=== PATIENT | male | born 1980 | race Caucasian/White ===

== ENCOUNTER 2016-03-04 19:43 | Emergency (ER) | payer SELFPAY ==
[2016-03-04 20:01] VITALS: TEMP 97.8; BMI 23.6
[2016-03-04] MEDS ORDERED: ONDANSETRON HCL 4 MG/2 ML VIAL IV ONE (20:28)
[2016-03-04] MEDS ORDERED: NS 1,000 ML IV ONE (20:28)
[2016-03-04] MEDS ORDERED: HYDROmorphone 1 MG INJECTION IV ONE ×2 (20:28→22:17)
[2016-03-04] MEDS ORDERED: AZITHROMYCIN 250 MG TAB PO ONE (20:57)
[2016-03-04] MEDS ORDERED: CEFTRIAXONE 1 GM in D5W 100 ML IV ONE (20:57)
--- NOTE | 2016-03-04 20:57 | EDPRACDOC ---
- General Information Chief Complaint: Male Urogenital Problems Stated Complaint: GROIN PAIN; SWELLING Time Seen by Provider: 03/04/16 20:28 Information Source: Patient Mode Of Arrival: Car Home Medications: Home Medications Albuterol Sulfate [Proair Hfa] 2 puff INH Q4 PRN #1 inhaler 10/30/15 Azithromycin [Zithromax] 250 mg PO DAILY #6 tablet 10/30/15 Prednisone [Deltasone, Orasone] 20 mg PO DAILY #12 tab 10/30/15 Ketorolac Tromethamine [Toradol] 10 mg PO Q6H PRN #20 tab 02/12/16 Phenazopyridine HCl [Pyridium] 200 mg PO TID #30 tablet 02/12/16 Sulfamethoxazole/Trimethoprim [Bactrim Ds Tablet] 1 tab PO BID #14 tab 02/12/16 Ciprofloxacin HCl [Cipro] 500 mg PO BID #20 tab 03/04/16 Doxycycline [Vibramycin] 100 mg PO BID #42 tab 03/04/16 Ondansetron [Zofran Odt] 4 mg PO Q6H PRN #20 tab.rapdis 03/04/16 Oxycodone Immediate Release [Oxycodone Immediate Release (OxyIR)] 5 mg PO Q6H PRN #30 tab 03/04/16 Allergies/Adverse Reactions: Allergies Allergy/AdvReac Type Severity Reaction Status Date / Time Penicillins Allergy Severe Hives* Verified 02/12/16 20:51 - History of Present Illness HPI: PT PRESENTS WITH LEFT TESTICULE PAIN AND SWELLING. STATES THIS HAS WORSENED TODAY. PT WAS SEEN AT THIS FACILITY LAST WEEK AND DX WITH UTI, THEN AT [facility] AND DIAGNOSED WITH EPIDIDYMITIS. STATES HE IS TAKING THE MEDICATIONS GIVEN TO HIM. PT STATES HE IS GETTING WORSE. 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 Urinary Pain Location: Reports: None Symptom Onset: Reports: Gradual Pain Severity: Moderate Pain Quality: Reports: Aching, Sharp, Stabbing History of: Reports: UTI Oral Intake: Decreased Urinary Output: Normal Associated Signs and Symptoms: Reports: None ED Past Medical History - History Reviewed Yes Nurses notes reviewed and agree except as marked - Patient Medical History Respiratory History: Reports: Asthma ( A CHILD) Psychological History: Denies: Depression - Family Medical History Reports: Cancer (colon in aunts) - Social Medical History Smoking Status: Heavy tobacco smoker (5 or more cigarettes/day or daily pipe/ cigar) EDM Review of Systems - Review of Systems ROS Negative Except as Marked: Yes All systems reviewed and were negative except as marked - Physical Exam Constitutional: Alert Oriented to: Time, Person, Place Last recorded Vital Signs: Last Vital Signs Temp 97.8 F 03/04/16 19:57 Pulse 99 03/04/16 19:57 Resp 20 03/04/16 19:57 BP 142/79 03/04/16 19:57 Pulse Ox 94 03/04/16 19:57 Oxygen Pulse Oxygen Saturation 94 O2 Device Room Air Oxygen Flow Rate Fraction of Inspired Oxygen ( FIO2) - HEENT Head: Normal ( normocephalic) Eye Exam: Normal (PERRL, EOMI, Sclera white) Oropharynx: Normal (Pharynx:Moist without exudate,Gums-no swelling) Tympanic Membrane: Normal Nose: No Symptoms Reported (septum midline) Neck: Normal (FROM, trachea at midline) - Respiratory/Cardiovascular Respiratory: Normal - CTA (BBS clear to auscultation without adventitious sounds ) Cardiovascular: Normal (RRR without murmur, gallop or rub) - GI Auscultation: Normal (NABS) Palpation: Normal (Soft,No rebound or guarding, non distended) Tenderness: Non tender Whitney's Sign: Negative Rectal Exam: Deferred - Male Genitalia: Bilateral: Normal Scrotum: Right: Normal, Left: Erythema, Tender, Swelling Hernia: Bilateral: Normal - Musculoskeletal Back: Normal (Non-Tender) Extremities: Normal (Normal tone, Pulses 2+ No cyanosis or edema, FROM) - Integumentary Skin: Normal, Warm, Dry Lymphatics: Normal (no adenopathy) - Neurologic Memory Impaired: Normal Motor Function: Normal (Normal tone, Pulses 2+ No cyanosis or edema, FROM) Cranial Nerve: Normal (CN II-X11 intact sensation, strength 5/5) Cerebellar: Normal Mood Description: Normal Perception: Normal - Differential Diagnosis Other - Results 03/04/16 21:05 03/04/16 21:05 Decision Time to Discharge: 22:05 - Departure Disposition: Home Condition: Stable Final Diagnosis: Acute epididymitis Instructions: Epididymitis (ED) Education/Counseling Given To: Patient Education/Counseling Given Regarding: Diagnosis, Treatment, Prognosis, Follow Up Referrals: Kurt Ghotra II, MD [Staff Physician] - One Week Zack Hatfield MD [Staff Physician] - One Week Prescriptions: Ciprofloxacin HCl [Cipro] 500 mg PO BID #20 tab Doxycycline [Vibramycin] 100 mg PO BID #42 tab Ondansetron [Zofran Odt] 4 mg PO Q6H PRN #20 tab.rapdis PRN Reason: Nausea/Vomiting Oxycodone Immediate Release [Oxycodone Immediate Release (OxyIR)] 5 mg PO Q6H PRN #30 tab PRN Reason: Pain Additional Instructions: INCREASE FLUID INTAKE. FOLLOW UP WITH PRIMARY CARE PROVIDER NEXT WEEK. TAKE ALL ANTIBIOTICS PRESCRIBED. RETURN TO THE ED FOR WORSENING SYMPTOMS OR CONCERNS. PLEASE MAKE A FOLLOW UP WITH UROLOGIST FOR NEXT WEEK.
[2016-03-04 21:26] LABS: AUTOMATED BASOPHIL 0.8 % (0-2); AUTOMATED EOSINOPHIL 3.2 % (0-5); AUTOMATED MONOCYTE 9.6 % (3-10); AUTOMATED NEUTROPHIL 60.4 % (45-76); MPV 7.9 fL (7.4-10.4)
[2016-03-04 21:29] LABS: LEUKOCYTES/URINE NEG (NEGATIVE); URINE OCCULT BLOOD 1+ (NEG/TRACE); WBC/URINE 20-30 (0-2)
[2016-03-04 21:30] LABS: BLOOD UREA NITROGEN 11 MG/DL (9-20); CALCIUM 9.4 MG/DL (8.4-10.2); CALCULATED OSMOLALITY 269 MOs/Kg (270-290); CHLORIDE 102 mEq/L (98-107); GLUCOSE 88 MG/DL (70-99); SODIUM LEVEL 141 mEq/L (137-146); TOTAL PROTEIN 7.4 G/DL (6.3-8.2)
[2016-03-04 21:34] LABS: NITRITE/URINE POS (NEGATIVE)
--- NOTE | 2016-03-04 21:56 | DIRPT ---
CLINICAL DATA: Left testicular pain and swelling for 3 days EXAM: SCROTAL ULTRASOUND DOPPLER ULTRASOUND OF THE TESTICLES TECHNIQUE: Complete ultrasound examination of the testicles, epididymis, and other scrotal structures was performed. Color and spectral Doppler ultrasound were also utilized to evaluate blood flow to the testicles. COMPARISON: None. FINDINGS: Right testicle Measurements: 47 x 25 x 35 mm. No mass or microlithiasis visualized. Left testicle Measurements: 48 x 30 x 27 mm. No mass or microlithiasis visualized. Right epididymis: Normal in size and appearance. Left epididymis: Body and tail of the left epididymis are enlarged, showing heterogeneous echogenicity and hyperemia. Hydrocele: Moderate left hydrocele. Trace right hydrocele. Varicocele: None visualized. Pulsed Doppler interrogation of both testes demonstrates normal low resistance arterial and venous waveforms bilaterally. IMPRESSION: Findings most consistent with left epididymitis and associated left hydrocele. Electronically Signed By: John Hinds M.D. On: 03/04/2016 21:54
[2016-03-04 23:12] VITALS: BP 142/63; PULSE 90
== END 2016-03-04 23:08 | disposition home or self-care (01) ==
LOC: ED 19:43
DX: N45.1 Epididymitis (principal); F17.200 Nicotine dependence, unspecified, uncomplicated
CPT/HCPCS: 76870; 80053; 81001; 85025; 87086; 87491; 87591; 93975; 96361; 96365; 96375; 96376; 99284; J0696; J1170; J2405; J3490; J7060